=== PATIENT | female | born 1965 | race Caucasian/White ===

== ENCOUNTER 2016-09-09 19:46 | Emergency (ER) | payer BC ==
[~2016-09-09] VITALS: Ht 167.6 cm; Wt 60.7 kg
[2016-09-09 19:49] VITALS: TEMP 36.5; Ht 167.6 cm; Wt 60.7 kg
[2016-09-09] MEDS ORDERED: RABIES VACCINE (IMOVAX) HUMAN DIPL CELL 2.5 INTER.UNIT/ML SYR IM. ONE (20:15)
[2016-09-09] MEDS ORDERED: FLUT0.15 (20:23)
--- NOTE | 2016-09-09 20:34 | EMERGENCY ROOM VISIT NOTE ---
History First contact with patient: 19:52 Chief Complaint: RABIES VACCINE Stated Complaint: RABIES SHOT History of Present Illness The patient is a 50 year old female who presents to the Emergency Room for rabies post exposure prophylaxis. The patient states that her family found a raccoon that was abandoned by his mother. They have been bottlefeeding it by hand, however the animal 2 days ago. 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 She states that her last titers were drawn 2 years ago and were positive. She does not recall a distinct scratch or laceration from the animal, but does have concern for mucus exposure as she did have to open its mouth in order to feed it. The patient does not have other complaints and rates her discomfort a 0/10. Review of Systems More than 6 systems were reviewed and otherwise negative with the exception of history of present illness. Past Medical/Surgical History No chronic medical disease Family History No pertinent family history Social History Smoking Status: Never Smoker Housing Status: lives with family Occupation Status: employed Current/Historical Medications Scheduled Fluticasone Propionate (Nasal) (Flonase Allergy Relief), 1 SPRAY NA DAILY Allergies Coded Allergies: Penicillins (Unverified Allergy, Unknown, HIVES, 09/09/16) Physical Exam Vital Signs Date Time Temp Pulse Resp B/P Pulse Ox O2 Delivery O2 Flow Rate FiO2 09/09/16 19:49 36.5 72 16 103/58 99 Room Air Physical Exam VITALS: Vitals are noted on the nurse's note and reviewed by myself. Vital signs stable. GENERAL: Well-developed, well-nourished, white female, who is in no acute distress and resting comfortably. Patient is cooperative with the examination. HEAD: Normocephalic atraumatic. HEART: Regular rate and rhythm without murmurs gallops or rubs. LUNGS: Clear to auscultation bilaterally without wheezes, rales or rhonchi. No retractions or accessory muscle use. NEURO: Patient was alert and oriented to person place and time. CN II through XII grossly intact. Medical Decision & Procedures ED Course Physical exam and history were performed. Nursing notes and EMR were reviewed. Patient appears to have a need for a rabies booster after exposure to a raccoon that after being abandoned by his mother. The patient has had the full rabies immunization series in the past and evidently her titers have been good the past few years. She was given Imovax 1 dose here in the department. She will need another dose in 3 days which should complete her booster series. The patient was otherwise invited back to the ER with any new, worsening, or concerning symptoms. The chart was completed utilizing [employer] Speech Voice Recognition Software. Grammatical errors, random word insertions, pronoun errors, and incomplete sentences are an occasional consequence of this system due to software limitations, ambient noise, and hardware issues. Any formal questions or concerns about the content, text, or information contained within the body of this dictation should be directly addressed to the provider for clarification. . Medical Decision Differential diagnosis includes, but is not limited to: Need for rabies immunization Impression Primary Impression: Rabies, need for prophylactic vaccination against Departure Information Dispostion Home / Self-Care Condition GOOD Referrals Tamika Cooper PA-C Forms HOME CARE DOCUMENTATION FORM, IMPORTANT VISIT INFORMATION Patient Instructions My [facility] Additional Instructions You were seen and evaluated today on an emergency basis only. This is not a substitute for, or an effort to provide, complete comprehensive medical care. It is not possible to recognize and treat all injuries or illnesses in a single emergency department visit. For this reason it is recommended that you followup with the emergency department on Tuesday09/12/2016. You will need 1 additional rabies immunization shot to complete your booster series. You are welcome to return to the emergency department anytime with new, worsening, or concerning symptoms.
[2016-09-09 21:19] VITALS: BP 125/63; PULSE 65; O2SAT 99
== END 2016-09-09 21:21 | disposition home or self-care (01) ==
LOC: C.EDB 19:47 → C.EDD 21:21
DX: Z20.3 Contact with and (suspected) exposure to rabies (principal); Z23 Encounter for immunization

== ENCOUNTER 2016-09-12 11:20 | Emergency (ER) | payer BC ==
[~2016-09-12] VITALS: Ht 160 cm; Wt 57.5 kg
[~2016-09-12 11:20] MED LIST: FLUT0.15
[2016-09-12 11:28] VITALS: BP 103/64; PULSE 82; TEMP 36.8; O2SAT 96; Ht 160 cm; Wt 57.5 kg
[2016-09-12] MEDS ORDERED: RABIES VACCINE (IMOVAX) HUMAN DIPL CELL 2.5 INTER.UNIT/ML SYR IM. ONE (11:45)
--- NOTE | 2016-09-12 11:46 | EMERGENCY ROOM VISIT NOTE ---
ED Visit Note First contact with patient: 11:38 Chief Complaint: Rabies Return Visit History of Present Illness: This patient is a 50-year-old female who presents to the Emergency Department this morning for their second and final Rabies Vaccination Injections. Patient had been vaccinated against rabies several years ago. The patient reports that they had no reaction to previous injection. Patient denies the development of any fevers, chills, sweats, or URI symptoms. Medications: Unchanged from previous visit. Allergies: Penicillins PMH: Unchanged from previous visit. SHx: Patient is a 50-year-old female who lives locally. ROS: All pertinent positive and negative review of systems are appropriately documented in the History of Present Illness. Physical Exam: VITAL SIGNS - Vital signs and Nursing Notes were reviewed. GENERAL -50-year-old female, well-developed, well-nourished, and in no acute distress. NEURO - Patient is A&Ox3 and communicates appropriately with the provider. ED Course: Previous ED visit note was reviewed by myself prior to patient evaluation. Patient reports no reaction to the previous injection(s). Patient received 2.5 international units of Imovax intramuscularly. Patient was observed in the Emergency Department for greater than 20 minutes prior to discharge without signs of reaction. Patient was educated on worrisome symptoms for return visit to the Emergency Department. Patient discharged to home with the intent for follow-up in the Emergency Department as scheduled for the remainder of their injections. Impression: Rabies Prophylaxis Discharge Instructions: You were seen in the Emergency Department today for your Rabies Prophylaxis Injection. For pain or fever control, you can use the following [id number] medicines (if >12 yo): - Regular strength (325mg/tab) Tylenol (acetaminophen) 2 tabs every 4-6 hours as needed. Do not exceed 12 tablets in a 24 hour period. Avoid taking more than 4 grams (4000 mg) of Tylenol per day. This includes any other sources of acetaminophen you may take on a regular basis. - Regular strength (200 mg/tab) Advil (ibuprofen) 1-2 tabs every 4-6 hours as needed. Do not exceed a dose of 3200 mg per day. Return to the emergency department if your symptoms worsen despite treatment course outlined above. Current/Historical Medications Scheduled Fluticasone Propionate (Nasal) (Flonase Allergy Relief), 1 SPRAY NA DAILY Allergies Coded Allergies: Penicillins (Unverified Allergy, Unknown, HIVES, 09/12/16) Vital Signs Date Time Temp Pulse Resp B/P Pulse Ox O2 Delivery O2 Flow Rate FiO2 09/12/16 11:28 36.8 82 16 103/64 96 Room Air Medications Administered Medications (Trade) Dose Ordered Sig/Susan Route Start Time Stop Time Status Last Admin Dose Admin Rabies Vaccine Human Diploid Cell (Imovax Rabies) 2.5 interunit ONCE ONCE IM. 09/12/16 11:45 09/12/16 11:46 DC 09/12/16 11:55 2.5 INTERUNIT Departure Information Impression Primary Impression: Rabies, need for prophylactic vaccination against Dispostion Home / Self-Care Condition GOOD Referrals Rhona Berry, (PCP) Patient Instructions My [facility] Additional Instructions You were seen in the Emergency Department today for your Rabies Prophylaxis Injection. For pain or fever control, you can use the following xxhb-lai-pgcuott medicines (if >12 yo): - Regular strength (325mg/tab) Tylenol (acetaminophen) 2 tabs every 4-6 hours as needed. Do not exceed 12 tablets in a 24 hour period. Avoid taking more than 4 grams (4000 mg) of Tylenol per day. This includes any other sources of acetaminophen you may take on a regular basis. - Regular strength (200 mg/tab) Advil (ibuprofen) 1-2 tabs every 4-6 hours as needed. Do not exceed a dose of 3200 mg per day. Return to the emergency department if your symptoms worsen despite treatment course outlined above.
== END 2016-09-12 11:56 | disposition home or self-care (01) ==
LOC: C.EDB 11:20 → C.EDC 11:56
DX: Z20.3 Contact with and (suspected) exposure to rabies (principal); Z23 Encounter for immunization

== ENCOUNTER → 2017-03-16 | Outpatient (CLI) | payer BC | END | disposition home or self-care (01) | LOC: C.PAPS 13:42 | PROVIDERS: ATTEND Physician Assistant | DX: Z01.419 Encounter for gynecological examination (general) (routine) without abnormal findings (principal) ==

== ENCOUNTER → 2017-05-03 | Outpatient (CLI) | payer BC ==
--- NOTE | 2017-05-04 15:59 | MAMMOGRAPHY REPORT ---
BILATERAL DIGITAL SCREENING MAMMOGRAM TOMOSYNTHESIS WITH CAD: 05/03/2017 CLINICAL HISTORY: Routine screening. Patient has no complaints. TECHNIQUE: Breast tomosynthesis in addition to standard 2D mammography was performed. Current study was also evaluated with a Computer Aided Detection (CAD) system. COMPARISON: Comparison is made to exams dated: 07/09/2014 ultrasound, 07/09/2014 mammogram, 01/01/2014 ultrasound, 01/01/2014 mammogram, 12/17/2013 mammogram, and 10/11/2012 mammogram - [facility]. BREAST COMPOSITION: There are scattered areas of fibroglandular density in both breasts. There have been mild involutional changes comparing to more remote prior mammograms. FINDINGS: No suspicious mass, architectural distortion or cluster of suspicious microcalcifications is seen. IMPRESSION: ACR BI-RADS CATEGORY 1: NEGATIVE There is no mammographic evidence of malignancy. A 1 year screening mammogram is recommended. The pa tient will receive written notification of the results. Approximately 10% of breast cancers are not detected with mammography. A negative mammographic report should not delay biopsy if a clinically suggestive mass is present. Leydi Beaver M.D. ay/:05/03/2017 16:24:50 Senior Label Specialist: Sharda Mohamud, [facility] letter sent: Normal 1/2 BI-RADS Code: ACR BI-RADS Category 1: Negative
== END | disposition home or self-care (01) ==
LOC: C.MAMM 15:41
PROVIDERS: ATTEND Physician Assistant
DX: Z12.31 Encounter for screening mammogram for malignant neoplasm of breast (principal)